=== PATIENT | female | born 1965 | race Caucasian/White ===

== ENCOUNTER 2024-09-13 07:31 | Outpatient (REF) | payer OTHER, SELFPAY ==
--- NOTE | ~2024-09-13 | MM_ITS ---
ADDENDUM #1 ADDENDUM: Comparison is made to prior mammogram August 22, 2023. Left: Asymmetry superior breast posterior depth on MLO view with questioned architectural distortion persists on today's images. Additional imaging and ultrasound recommended at this time. OVERALL ASSESSMENT: BI-RADS 0 - Incomplete: Needs additional Imaging. RECOMMENDATION: Additional Imaging required Electronically signed by: Sabrina Ann DO 09/21/2024 04:20 PM EST RP ORIGINAL REPORT EXAMINATION: MM SCREENING DIGITAL BREAST TOMOSYNTHESIS, BILATERAL CLINICAL INFORMATION: Screening. Asymptomatic. COMPARISON: Mammography: Baseline. TECHNIQUE: Digital breast mammography with tomosynthesis is performed in both the craniocaudal and mediolateral oblique views along with computer-aided detection (CAD). FINDINGS: The breasts are extremely dense, which lowers the sensitivity of mammography (ACR BI-RADS breast composition Category d). Right: There are no significant masses, abnormal calcifications, or other abnormalities. Left: Asymmetry superior breast posterior depth on MLO view with questioned distortion. No suspicious calcifications or other abnormal findings. IMPRESSION: Additional imaging is recommended ASSESSMENT: BI-RADS BI-RADS 0 - Incomplete: Needs additional Imaging. RECOMMENDATION: 1. Additional views of the left breast 2. Targeted ultrasound if warranted after review of the additional views. 3. Radiology department staff will contact the patient for additional imaging. Additional Imaging required This examination should not preclude the clinical evaluation of a suspicious palpable abnormality. This patient's information was entered into a reminder system with a target due date for their next mammogram. Electronically signed by: Sabrina Ann DO 09/19/2024 05:48 PM EST RP MM/MM tomosynthesis screening BI
== END 2024-09-13 07:32 | disposition home or self-care (01) ==
LOC: HO.MAMMO 07:31
PROVIDERS: PCP Internal Medicine; Visit Provider Internal Medicine
DX: Z12.31 Encounter for screening mammogram for malignant neoplasm of breast (principal)
CPT/HCPCS: 77063; 77067

== ENCOUNTER → 2024-09-13 07:45 | Outpatient (BNV) | payer OTHER, SELFPAY | PROVIDERS: PCP Internal Medicine; Visit Provider Internal Medicine | DX: Z12.31 Encounter for screening mammogram for malignant neoplasm of breast (principal) | CPT/HCPCS: 77063; 77067 ==

== ENCOUNTER 2024-10-20 11:49 | Outpatient (REF) | payer OTHER, SELFPAY ==
--- NOTE | ~2024-10-20 | MM_ITS ---
EXAMINATION: MM DIAGNOSTIC DIGITAL BREAST TOMOSYNTHESIS, LEFT Limited left breast ultrasound. CLINICAL INFORMATION: Call back from screening for asymmetry with questioned distortion the superior posterior left breast on MLO view. COMPARISON: Mammography: Comparison is made with available prior examinations. TECHNIQUE: Digital breast tomosynthesis is performed in both the craniocaudal and mediolateral oblique views along with computer-aided detection (CAD). Synthesized 2D images are generated from the tomosynthesis. Limited left breast ultrasound. FINDINGS: The breasts are extremely dense, which lowers the sensitivity of mammography (ACR BI-RADS breast composition Category d). Previously seen asymmetry in the superior left breast posterior depth on MLO view partially effaces on additional imaging projections. No suspicious calcifications or other abnormal findings. Targeted color Doppler ultrasound scanning from 2-3 o'clock demonstrates normal fibronodular breast tissue. There is no sonographic abnormality. MM/MM tomosynthesis added views L IMPRESSION: Asymmetry in the left breast which partially effaces and without sonographic correlate. Recommend 6 month follow-up left breast mammography for further evaluation of stability. ASSESSMENT: BI-RADS BI-RADS 3 - Probably benign finding(s) - 6 month follow-up suggested RECOMMENDATION: 6 Month F/U Results were provided to the patient at time of visit by the technologist. This patient's information was entered into a reminder system with a target due date for their next mammogram. Electronically signed by: Sabrina Ann DO 10/20/2024 01:29 PM [facility]
== END 2024-10-20 11:50 | disposition home or self-care (01) ==
LOC: HO.MAMMO 11:49
PROVIDERS: PCP Internal Medicine; Visit Provider Internal Medicine
DX: N64.89 Other specified disorders of breast (principal)
CPT/HCPCS: 76642; 77061; 77065

== ENCOUNTER → 2024-10-20 12:00 | Outpatient (BNV) | payer OTHER, SELFPAY | PROVIDERS: PCP Internal Medicine; Visit Provider Internal Medicine | DX: N64.89 Other specified disorders of breast (principal) | CPT/HCPCS: 76642; 77061; 77065 ==

== ENCOUNTER 2025-05-24 09:21 | Outpatient (REF) | payer OTHER, SELFPAY ==
--- NOTE | ~2025-05-24 | MM_ITS ---
EXAMINATION(S): MM DIAGNOSTIC DIGITAL BREAST TOMOSYNTHESIS, LEFT CLINICAL INFORMATION: This is a 6-month follow-up of left breast asymmetry in the superior breast posterior depth on the MLO view, with questioned architectural distortion and without sonographic correlate. COMPARISON: Comparison made to multiple prior, most recent October 20, 2024, and most remote April 05, 2022. TECHNIQUE: Digital breast tomosynthesis is performed in MLO along with computer-aided detection (CAD). Synthesized 2D images are generated from the tomosynthesis. Spot compression tomosynthesis were obtained. FINDINGS: BREAST COMPOSITION: The breasts are heterogeneously dense, which may obscure small masses (ACR BI-RADS breast composition Category c). LEFT BREAST: Previously suggested asymmetry in the superior breast posterior depth with questioned architectural distortion that partially effaces with spot compression is unchanged from October 2024. MM/MM tomosynthesis diagnostic LT IMPRESSION: LEFT BREAST: Unchanged asymmetry in the superior breast posterior depth with questioned architectural distortion. Probably benign. A 6-month follow-up is recommended as bilateral diagnostic mammogram. ASSESSMENT: BI-RADS 3 - Probably benign finding(s) - 6 month follow-up suggested RECOMMENDATION: 6 Month F/U Results were provided to the patient at time of visit by the technologist. This patient's information was entered into a reminder system with a target due date for their next mammogram. Electronically signed by: Margi Bhakta MD 05/24/2025 11:38 AM EDT Workstation: [id number]
== END 2025-05-24 09:22 | disposition home or self-care (01) ==
LOC: HO.MAMMO 09:21
PROVIDERS: Visit Provider Internal Medicine
DX: N64.89 Other specified disorders of breast (principal)
CPT/HCPCS: 77061; 77065

== ENCOUNTER → 2025-05-24 09:30 | Outpatient (BNV) | payer OTHER, SELFPAY | PROVIDERS: Visit Provider Radiology Body Imaging | DX: N64.89 Other specified disorders of breast (principal) | CPT/HCPCS: 77061; 77065 ==